=== PATIENT | male | born 1955 | race Caucasian/White ===

== ENCOUNTER 2018-11-24 08:06 | Outpatient (CLI) | payer BC ==
--- NOTE | 2018-11-24 10:19 | ULT ---
RIGHT UPPER QUADRANT ULTRASOUND: INDICATION: Hepatic steatosis. Reported history of prior hepatitis C diagnosis. FINDINGS: There is increased echogenicity of the liver without focal hepatic lesion identified. No acute gallb ladder pathology. The imaged common duct is normal in diameter, measuring 3-4 mm. There is no ascit es demonstrated. IMPRESSION: 1. Increased echogenicity of hepatic parenchyma correlating to history of hepatic steatosis. 2. No acute gallbladder pathology. 3. Incidental note of a focus of decreased echogenicity, right kidney, exophytic in morphology appro ximately 1.9 cm indicative of a cyst. POS: [facility]
== END 2018-11-24 08:07 | disposition home or self-care (01) ==
LOC: SCSULT 08:06
PROVIDERS: ATTEND Specialist
DX: K76.0 Fatty (change of) liver, not elsewhere classified (principal); R93.2 Abnormal findings on diagnostic imaging of liver and biliary tract; Z86.19 Personal history of other infectious and parasitic diseases
CPT/HCPCS: 76705

== ENCOUNTER 2023-02-07 11:50 | Outpatient (CLI) | payer MEDICARE | END 2023-02-07 11:51 | disposition home or self-care (01) | LOC: PET 11:50 | PROVIDERS: ATTEND Internal Medicine Hematology & Oncology | DX: C82.98 Follicular lymphoma, unspecified, lymph nodes of multiple sites (principal); R59.9 Enlarged lymph nodes, unspecified | CPT/HCPCS: 78816; A9552 ==

== ENCOUNTER 2023-02-25 07:38 | Outpatient (CLI) | payer MEDICARE ==
[2023-02-25] MEDS ORDERED: Iopamidol 370 76% 100 ML VIAL ONE (15:08)
== END 2023-02-25 07:39 | disposition home or self-care (01) ==
LOC: CT 07:38
PROVIDERS: ATTEND Radiology Radiation Oncology
DX: C83.84 Other non-follicular lymphoma, lymph nodes of axilla and upper limb (principal); L90.5 Scar conditions and fibrosis of skin
CPT/HCPCS: 82565; Q9967

== ENCOUNTER 2023-03-26 09:53 | Outpatient (CLI) | payer MEDICARE | END 2023-03-26 09:54 | disposition home or self-care (01) | LOC: ULT 09:53 | PROVIDERS: ATTEND Physician Assistant Medical | DX: Z86.19 Personal history of other infectious and parasitic diseases (principal) | CPT/HCPCS: 76705 ==

== ENCOUNTER 2023-11-11 08:00 | Outpatient (CLI) | payer MEDICARE | END 2023-11-11 08:01 | disposition home or self-care (01) | LOC: PET 08:00 | PROVIDERS: ATTEND Internal Medicine Hematology & Oncology | DX: C83.88 Other non-follicular lymphoma, lymph nodes of multiple sites (principal) | CPT/HCPCS: 78816; A9552 ==

== ENCOUNTER 2025-03-02 08:00 | Outpatient (CLI) | payer MEDICARE | END 2025-03-02 08:01 | disposition home or self-care (01) | LOC: PET 08:00 | PROVIDERS: ATTEND Internal Medicine Hematology & Oncology | DX: C83.88 Other non-follicular lymphoma, lymph nodes of multiple sites (principal) | CPT/HCPCS: 78815; A9552 ==